=== PATIENT | female | born 1960 | race Caucasian/White ===

== ENCOUNTER 2016-08-31 11:09 | Day surgery (SDC) | payer OTHER ==
[~2016-08-31] VITALS: Ht 167.6 cm; Wt 107.8 kg
[2016-08-31 12:10] VITALS: Ht 167.6 cm; Wt 107.8 kg
[2016-08-31] MEDS ORDERED: OMEPRAZOLE PO (12:18)
[2016-08-31] MEDS ORDERED: LOSARTAN PO (12:18)
[2016-08-31] MEDS ORDERED: ASPI-535 PO (12:18)
[2016-08-31] MEDS ORDERED: METOPROLOL PO (12:18)
[2016-08-31 12:26] VITALS: BP 141/86; PULSE 80; RESP 11
[2016-08-31] MEDS ORDERED: LIDOCAINE 2% (SDV) 5 ML INJ ONE (12:57)
[2016-08-31] MEDS ORDERED: PROPOFOL 40 ML ONE (12:57)
[2016-08-31] MEDS ORDERED: EPHEDrine SULFATE 50 MG/5 ML SYG ONE (13:30)
[2016-08-31 13:58] VITALS: BP 137/67; PULSE 99; RESP 19
--- NOTE | 2016-09-01 02:44 | GILP ---
DATE OF PROCEDURE: 08/31/2016 NAME OF PROCEDURES: 1. Esophagogastroduodenoscopy and biopsy. 2. Colonoscopy. SURGEON: Jorge Vo MD PREOPERATIVE DIAGNOSES: 1. Abdominal pain. 2. Chronic heartburn. 3. Change in the bowel habit. 4. Rectal bleeding. POSTOPERATIVE DIAGNOSES: 1. Hiatal hernia. 2. Reflux esophagitis with erosions at the lower end. 3. Gastritis. 4. Gastric mucosal biopsies were taken for Helicobacter pylori test. 5. Colonoscopy all the way to the cecum. 6. Diverticulosis of the colon. 7. Internal hemorrhoids. 8. No colon neoplasm was identified. INDICATION FOR THE PROCEDURE: Ms. Irina Benson is a 56-year-old female patient, who had upper abdominal pain and chronic heartburn, not responding to therapy. The patient also noticed a change in the bowel habit with left lower quadrant abdominal pain, with occasional rectal bleeding. The pa tient was scheduled for endoscopy and colonoscopy for further evaluation. The procedures and possible complications were well explained to the patient. The patient understoo d and consented to the procedure. DESCRIPTION OF PROCEDURE: Under the influence of anesthesia, the gastroscope was carefully introduc ed into the esophagus, and then under direct vision was advanced to the stomach, through the pylorus , the duodenal bulb, and descending duodenum. FINDINGS: ESOPHAGUS: The patient had hiatal hernia with reflux esophagitis and erosions at the lower end of t he esophagus. STOMACH: She had gastritis. Gastric mucosal biopsies were taken for H. pylori test. DUODENUM: Normal. The colonoscope was carefully introduced in the rectum, and then under direct vision, it was advance d all the way to the cecum. FINDINGS: The patient had diverticulosis of the colon. She also had internal hemorrhoids. No colo n neoplasm was identified. She tolerated the procedures very well and there was no complication from the procedures. At the en d of the procedures, she was awake with stable vital signs and she was discharged home to the care o f her family. IMPRESSION: Please see postoperative diagnosis. PLAN: 1. Omeprazole 40 mg p.o. q.a.m. 2. Zantac 300 mg p.o. at bedtime. 3. High-fiber diet. 4. Await H. pylori test report. Dictated By: JORGE NINO/BAS[place] Conf#: [id number] DID#: [id number] CC: JORGE VO MD;*[facility]*
== END 2016-08-31 15:04 | disposition home or self-care (01) ==
LOC: GIL 11:09
PROVIDERS: ATTEND Internal Medicine Gastroenterology
DX: Z12.11 Encounter for screening for malignant neoplasm of colon (principal); K44.9 Diaphragmatic hernia without obstruction or gangrene; K21.0 Gastro-esophageal reflux disease with esophagitis; K29.70 Gastritis, unspecified, without bleeding; K57.90 Diverticulosis of intestine, part unspecified, without perforation or abscess without bleeding; K64.8 Other hemorrhoids; E66.9 Obesity, unspecified; Z68.38 Body mass index [BMI] 38.0-38.9, adult
CPT/HCPCS: 43239; 45378; 87081; Z7610